=== PATIENT | female | born 2000 | race Caucasian/White ===

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

== ENCOUNTER 2020-04-17 15:06 | Emergency (ER) | payer BC ==
[2020-04-17] MEDS ORDERED: metroNIDAZOLE 250 MG Tab PO ONE (19:21)
--- NOTE | 2020-04-17 19:42 | EDM.PDOC ---
ED HPI GENERAL MEDICAL PROBLEM - General Chief Complaint: Abdominal Pain Stated Complaint: SHARP PAIN IN THE ABDOMINAL Time Seen by Provider: 04/17/20 15:25 - History of Present Illness INITIAL COMMENTS - FREE TEXT/NARRATIVE: CHIEF COMPLAINT(S): Left lower quadrant pain HISTORY OF PRESENT ILLNESS: This is a 20-year-old woman without any significant past medical history who comes to the emergency department with a chief compl aint of left lower quadrant pain. She states that approximately 1/2 weeks ago she finished her period and then this morning she started to have a little bit of vaginal bleeding which she states did not soak through a full pad. She states that it stopped prior to arrival. She states that the same time she had some vaginal bleeding she experienced some sharp pain in her left lower quadrant which she states felt similar to when she was . This pain does not radiate and there is no aggravating or relieving symptoms. There was no associated symptoms. She denies any back pain, dysuria, hematuria, vaginal discharge. She states that she is sexually active does not use condoms or barrier protection frequently. She states that she was concerned because her family has a history of endometriosis in the family. She denies any history of ovarian cyst or ovarian torsion. She denies any history of ectopic . She states that she has not yet tried any pain medication but the pain has improved. REVIEW OF SYSTEMS: Constitutional: Denies fever, chills. Eyes: Denies eye pain Ears, Nose, Mouth, & Throat: Denies earache Cardiovascular: Denies chest pain Respiratory: Denies shortness of breath Gastrointestinal: Denies Nausea, vomiting, diarrhea, hematochezia. Genitourinary: Positive for vaginal bleeding and left pelvic pain. Denies hematuria, vaginal discharge, vaginal irritation or vaginal itching Skin:Denies a rash Neurological: Denies blurred vision Psychiatric: Denies depression PAST MEDICAL HISTORY: As per history of present illness and as reviewed below otherwise noncontributory. SURGICAL HISTORY: As per history of present illness and as reviewed below otherwise noncontributory. LMP: 1.5 weeks ago SOCIAL HISTORY: As per history of present illness and as reviewed below otherwise noncontributory. FAMILY HISTORY: As per history of present illness and as reviewed below otherwise noncontributory. EXAMINATION OF ORGAN SYSTEMS/BODY AREAS: Constitutional: Blood pressure was 122/78, heart rate 100, respiratory rate 16 with an oxygen saturation of 98% on room air. Temperature 35.7 General: Overall well-appearing woman who is in no acute distress Psychiatric: Appropriate mood and affect. Eyes: No scleral icterus or conjunctival erythema ENMT: Moist mucous membranes. No pharyngeal erythema Cardiovascular: Regular, rate, and rhythm. No gallops, murmurs, or rubs. Bilateral upper extremity pulses symmetric and intact. No peripheral edema. No JVD. Respiratory: Lungs clear to auscultation bilaterally. No wheezes, rales, or rhonchi. Gastrointestinal: Soft, non-tender, non-distended. Normoactive bowel sounds no rebound or guarding Genitourinary: There is some external left pelvic pain. No suprapubic tenderness. Bedside pelvic examination was performed with RN adoption specialist in presence. The patient had normal female external genitalia. On speculum examination there was a white frothy discharge however there was no bleeding. The cervix was not erythematous. On bimanual examination there was no cervical motion tenderness but there was some mild left adnexal tenderness. Musculoskeletal: Normal range of motion. Skin: No lesions or abrasions. Neurological: Alert, GCS 15 MEDICAL DECISION MAKING AND COURSE IN THE ED WITH INTERPRETATION/REVIEW OF DIAGNOSTIC STUDIES: This is a 20-year-old woman without any significant past medical history who comes to the emergency department with episode of vaginal bleeding and left pelvic pain. At this time will obtain a [id number] test and obtain a urinalysis. Given the location of her pain we will obtain a transvaginal OB ultrasound. Differential at this time includes ovarian torsion versus ruptured ovarian cyst versus PID. We did send the patient's swab for Gardnerella vaginalis to evaluate. Patient's pain had improved therefore no pain medication was administered. Urinalysis was a dirty catch and was positive for leukocyte esterase, negative for nitrites, and negative for blood. WBC count 10-15. Interpretation: Likely negative given that it was a dirty catch Gardnerella is positive. Kelley and trichomonas are negative. The radiological images were viewed by myself along with reading the report from the radiologist. Transvaginal ultrasound reveals a normal pelvic ultrasound. There was trace free pelvic fluid. Ovaries appeared normal bilaterally. After labs and imaging I did discuss results with the patient. At this time her pain had improved. I did discuss with her at this time that this could have been secondary to a ruptured ovarian cyst versus symptoms from BV. I discussed that at this time she should follow up with gynecology and that to return to the emergency department if she has worsening or recurrent pain. She was amenable to discharge at this time and had no further questions. I did provide the patient with Flagyl here and then sent her a prescription to her pharmacy. DISPOSITION: The patient was discharged home in stable condition. The patient will follow up with gynecology within 1 CONDITION: Fair PROCEDURES: None FINAL IMPRESSION(S)/DIAGNOSES: 1. Acute vaginal bleeding and left pelvic pain likely secondary to ruptured ovarian cyst 2. Acute Gardnerella vaginosis Jef Castillo M.D. 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: - Infectious Disease History Infectious Disease History: Reports: None Social & Family History - Family History Family Medical History: No Pertinent Family History Cardiac: Reports: Heart Murmur Other Cardiac Family History: Brother - Tobacco Use Tobacco Use Status *Q: Current Every Day Tobacco User Years of Tobacco use: 6 Packs/Tins Daily: 0.1 - Caffeine Use Caffeine Use: Reports: Energy Drinks - Recreational Drug Use Recreational Drug Use: No ED ROS GENERAL - Review of Systems Review Of Systems: See Below ED EXAM, GENERAL - Physical Exam Exam: See Below Course - Vital Signs Last Recorded V/S: Last Vital Signs Temp 36.4 C 04/17/20 20:04 Pulse 90 04/17/20 20:04 Resp 16 04/17/20 20:04 BP 122/82 04/17/20 20:04 Pulse Ox 98 04/17/20 20:04 - Orders/Labs/Meds Labs: Laboratory Tests 04/17/20 04/17/20 04/17/20 Range/Units 15:40 15:40 17:00 Urine Color YELLOW Urine Appearance CLEAR Urine pH 6.0 (5.0-8.0) Ur Specific Jefferson 1.020 (1.001-1.035) Urine Protein NEGATIVE (NEGATIVE) mg/dL Urine Glucose (UA) NEGATIVE (NEGATIVE) mg/dL Urine Ketones NEGATIVE (NEGATIVE) mg/dL Urine Occult Blood NEGATIVE (NEGATIVE) Urine Nitrite NEGATIVE (NEGATIVE) Urine Bilirubin NEGATIVE (NEGATIVE) Urine Urobilinogen 0.2 (<2.0) EU/dL Ur Leukocyte Esterase LARGE H (NEGATIVE) Urine RBC 0-2 (0-2/HPF) Urine WBC 10-15 (0-5/HPF) Ur Epithelial Cells MODERATE (NONE-FEW) Urine Bacteria 1+ H (NEGATIVE) Urine HCG, Qual NEGATIVE (NEGATIVE) Kelley species DNA NEGATIVE (NEGATIVE) Gardnerella DNA Probe POSITIVE H (NEGATIVE) Trichomonas DNA Probe NEGATIVE (NEGATIVE) Meds: Medications Discontinued Medications Generic Name Dose Route Start Last Admin Trade Name Freq PRN Reason Stop Dose Admin Metronidazole 500 mg 04/17/20 19:21 04/17/20 19:48 Metronidazole PO 04/17/20 19:22 500 mg ONETIME ONE Administration Departure - Departure Time of Disposition: 19:40 Disposition: Home, Self-Care 01 Condition: Fair Clinical Impression: Ovarian cyst rupture, Bacterial vaginosis - Discharge Information *PRESCRIPTION DRUG MONITORING PROGRAM REVIEWED*: No *COPY OF PRESCRIPTION DRUG MONITORING REPORT IN PATIENT KATHIE: No Prescriptions: metroNIDAZOLE [Flagyl] 500 mg PO BID #13 tablet Instructions: Bacterial Vaginosis, [id number], Ovarian Cyst, [id number] Referrals: PCP,None [Primary Care Provider] - Forms: ED Department Discharge Additional Instructions: Your evaluated today on an emergent basis. I do believe the pain you are experiencing was due to an ovarian cyst that had possibly ruptured. Given that her pain is improved this is a good sign. Please continue to take over-the- counter Tylenol and Motrin for pain relief. Please follow-up with OB/gyne within 1 week. In addition you were diagnosed with bacterial vaginosis. Please complete the antibiotics which were sent to your pharmacy. Return to the emergency department for any new or worsening symptoms. [facility] [address] [place] [id number] [facility] [address] [place] [id number] The patient is informed of any results of their evaluation and diagnostic workup and all questions are answered. They are given discharge instructions and return precautions. The patient is stable for discharge. The patient states they understand and agree with the plan and that they will return if their symptoms get worse or if they have any new concerns. The following information is given to patients seen in the emergency department who are being discharged to home. This information is to outline your options for follow-up care. We provide all patients seen in our emergency department with a follow-up referral. The need for follow-up, as well as the timing and circumstances, are variable depending upon the specifics of your emergency department visit. If you don't have a primary care physician on staff, we will provide you with a referral. We always advise you to contact your personal physician following an emergency department visit to inform them of the circumstance of the visit and for follow-up with them and/or the need for any referrals to a consulting specialist. The emergency department will also refer you to a specialist when appropriate. This referral assures that you have the opportunity for follow-up care with a specialist. All of these measure are taken in an effort to provide you with optimal care, which includes your follow-up. Under all circumstances we always encourage you to contact your private physician who remains a resource for coordinating your care. When calling for follow-up care, please make the office aware that this follow-up is from your recent emergency room visit. If for any reason you are refused follow-up, please contact the [facility] Emergency Department at and asked to speak to the emergency department charge nurse. Sepsis Event Note (ED) - Evaluation Sepsis Screening Result: Possible Sepsis Risk - Focused Exam Vital Signs: Vital Signs Temp Pulse Resp BP Pulse Ox 04/17/20 20:04 36.4 C 90 16 122/82 98
--- NOTE | 2020-04-17 19:46 | US ---
INDICATION: EVALUATE FOR OVARIAN TORSION / CYSTS. LLQ PAIN, WITH VAGINAL BLEEDING PELVIC ULTRASOUND Technique: Multiple transvaginal sonographic images of the pelvis were performed. Findings: The uterus is normal in size and contour, measuring 7.4 x 5.5 x 4.0cm. No uterine masses are identified. The endometrium measures 14mm in thickness and appears homogeneous. The ovaries appear normal bilaterally. Color and spectral Doppler blood flow is noted in both ovaries. No adnexal masses are evident. Trace free pelvic fluid is identified and is likely physiologic. IMPRESSION: Normal pelvic ultrasound. MICHELLE VALLADARES MD [employer] Dictated by: Dioni Valladares MD @ 04/17/2020 19:45:27 (Electronically Signed)
[2020-04-17 20:05] VITALS: BP 122/82; PULSE 90
== END 2020-04-17 20:05 | disposition home or self-care (01) ==
LOC: MW.ED 15:06
DX: N76.0 Acute vaginitis (principal); N83.209 Unspecified ovarian cyst, unspecified side; F17.210 Nicotine dependence, cigarettes, uncomplicated
CPT/HCPCS: 76830; 81001; 81025; 87480; 87510; 87660; 99284; A9270; 99283

== ENCOUNTER 2021-08-17 16:30 | Emergency (ER) | payer BC, MEDICAID ==
[2021-08-17] MEDS ORDERED: Sodium Chloride 0.9% 10 ML Syringe FLUSH PRN (16:33)
[2021-08-17] MEDS ORDERED: Sodium Chloride 0.9% 2.5 ML Syringe FLUSH PRN (16:33)
[2021-08-17] MEDS ORDERED: LORazepam 2 MG/ML SDV IVPUSH ONE (16:45)
[2021-08-17] MEDS ORDERED: Sodium Chloride 0.9% 1,000 ML IV ONE (16:45)
[2021-08-17] MEDS ORDERED: Ondansetron 4 MG/2 ML SDV IVPUSH ONE (16:45)
[2021-08-17 17:13] LABS: BLOOD UREA NITROGEN,BUN 13 mg/dL (7.0-18.0); CARBON DIOXIDE,CO2 22.7 mmol/L (21.0-32.0); CHLORIDE,CL 102 mmol/L (98-107); GLUCOSE RANDOM 80 mg/dL (74-106); LIPASE 34 U/L (73-393); SODIUM,NA 141 mmol/L (136-145)
[2021-08-17] MEDS ORDERED: Potassium Chloride 20 MEQ Tab.ER PO ONE (17:26)
[2021-08-17 19:23] VITALS: BP 110/87; PULSE 76
== END 2021-08-17 19:24 | disposition home or self-care (01) ==
LOC: MW.ED 16:30
DX: N39.0 Urinary tract infection, site not specified (principal); E87.6 Hypokalemia; F10.120 Alcohol abuse with intoxication, uncomplicated
CPT/HCPCS: 36415; 80053; 81001; 81025; 83690; 85025; 87086; 93005; 96374; 99284; A9270; J2060; J2405; J3490; J7030; 93010; 99283

== ENCOUNTER 2021-09-22 19:30 | Emergency (ER) | payer BC ==
[2021-09-22] MEDS ORDERED: Ondansetron 4 MG/2 ML SDV IVPUSH ONE (19:54)
[2021-09-22] MEDS ORDERED: Sodium Chloride 0.9% 1,000 ML IV ONE (19:54)
[2021-09-22] MEDS ORDERED: Ketorolac 30 MG/ML SDV IVPUSH ONE (19:54)
[2021-09-22] MEDS ORDERED: Sodium Chloride 0.9% 2.5 ML Syringe FLUSH PRN (19:54)
[2021-09-22] MEDS ORDERED: Sodium Chloride 0.9% 10 ML Syringe FLUSH PRN (19:54)
[2021-09-22 20:54] LABS: BLOOD UREA NITROGEN,BUN 13 mg/dL (7.0-18.0); CARBON DIOXIDE,CO2 28.9 mmol/L (21.0-32.0); CHLORIDE,CL 101 mmol/L (98-107); GLUCOSE RANDOM 83 mg/dL (74-106); POTASSIUM,K 3.6 mmol/L (3.5-5.1); SODIUM,NA 137 mmol/L (136-145)
[2021-09-22 21:43] VITALS: BP 127/85; PULSE 76
== END 2021-09-22 21:43 | disposition home or self-care (01) ==
LOC: MW.ED 19:30
DX: N83.202 Unspecified ovarian cyst, left side (principal)
CPT/HCPCS: 36415; 80053; 81001; 81025; 85025; 96374; 96375; 99284; J1885; J2405; J3490; J7030; 99282

== ENCOUNTER 2024-05-25 11:34 | Emergency (ER) | payer SELFPAY ==
[2024-05-25 13:38] VITALS: BP 115/78; PULSE 79
== END 2024-05-25 13:35 | disposition home or self-care (01) ==
LOC: MW.ED 11:34
DX: S09.90XA Unspecified injury of head, initial encounter (principal); Z75.8 Other problems related to medical facilities and other health care; Z79.899 Other long term (current) drug therapy; F17.210 Nicotine dependence, cigarettes, uncomplicated; W00.0XXA Fall on same level due to ice and snow, initial encounter; Y93.89 Activity, other specified
CPT/HCPCS: 99283